=== PATIENT | female | born 1955 | race African-American/Black ===

== ENCOUNTER 2022-09-28 04:39 | Day surgery (SDC) | payer OTHER ==
[2022-09-27 08:56] VITALS: BMI 29.2
[2022-09-28 12:20] VITALS: TEMP 97.1
[2022-09-28 12:53] VITALS: BP 112/64; PULSE 76; RESP 12
== END 2022-09-28 13:24 | disposition home or self-care (01) ==
LOC: JASU-ENDO 04:39
PROVIDERS: ATTEND Internal Medicine
PROC: 0DBN8ZX Excision of Sigmoid Colon, Via Natural or Artificial Opening Endoscopic, Diagnostic (ICD-10-PCS; principal; 2022-09-28 10:45)
DX: Z12.11 Encounter for screening for malignant neoplasm of colon (principal); K63.5 Polyp of colon; K64.8 Other hemorrhoids; Z86.010 Personal history of colon polyps
CPT/HCPCS: 88305-TC; C9803-CS; U0003; U0005